=== PATIENT | male | born 1985 | race Caucasian/White ===

== ENCOUNTER 2021-11-19 16:01 | Inpatient (IN) | payer OTHER, MEDICAID ==
[~2021-11-19] VITALS: Ht 170.2 cm; Wt 63.6 kg
[~2021-11-19 16:01] MED LIST: GABA-1181 PO; OLAN10TA74 PO; SERT-158 PO
[2021-11-19 17:19] LABS: AMPHET/METH SCREEN,URINE POSITIVE (NEGATIVE); BARBITURATE SCREEN, URINE NEGATIVE (NEGATIVE); BENZODIAZEPINES SCREEN,URINE NEGATIVE (NEGATIVE); CANNABINOID SCREEN,URINE POSITIVE (NEGATIVE); COCAINE SCREEN,URINE NEGATIVE (NEGATIVE); METHADONE SCREEN, URINE NEGATIVE (NEGATIVE); OPIATE SCREEN,URINE NEGATIVE (NEGATIVE)
[2021-11-19 17:21] LABS: PHENCYCLIDINE SCREEN,URINE NEGATIVE (NEGATIVE)
[2021-11-19 17:30] LABS: BASOPHILS % (AUTO) 0.9 % (0.0-2.0); EOSINOPHILS % (AUTO) 1.1 % (1.0-6.0); HEMATOCRIT 46.6 % (41-53); HEMOGLOBIN 15.9 g/dL (13.5-17.5); LYMPHOCYTES # (AUTO) 1.9 K/uL (1.0-4.8); LYMPHOCYTES % (AUTO) 21.6 % (22.0-44.0); MEAN CORPUSCULAR HEMOGLOBIN 31.4 pg (26.0-34.0); MEAN CORPUSCULAR HGB CONC 34.1 G/dL (31.0-37.0); MEAN CORPUSCULAR VOLUME 92 fL (80-100); MONOCYTES # (AUTO) 0.9 K/uL (0.1-1.0); MONOCYTES % (AUTO) 10.1 % (2.0-9.0); NEUTROPHILS # (AUTO) 5.9 K/uL (1.8-7.7); NEUTROPHILS % (AUTO) 66.3 % (40.0-70.0); PLATELET COUNT (AUTO) 378 K/uL (150-450); RED BLOOD CELL COUNT(AUTO) 5.05 MIL/uL (4.50-5.90); RED CELL DISTRIBUTION WIDTH 13.4 % (11.5-14.5)
[2021-11-19 17:40] LABS: ANION GAP 10 mmol/L (8-16); CALCIUM, TOTAL 9.5 mg/dL (8.8-10.5); CARBON DIOXIDE 29 mmol/L (22-29); CHLORIDE 100 mmol/L (98-107); CREATININE 0.95 mg/dL (0.60-1.30); GLOMERULAR FILTR. RATE CALC > 60 mL/min (>60); GLUCOSE,RANDOM 55 mg/dL (70-110); SODIUM SERUM 139 mmol/L (136-145); UREA NITROGEN, BLOOD 17 mg/dL (7-18)
[2021-11-19 17:45] LABS: ALANINE AMINOTRANSFERASE 42 U/L (12-78); ALBUMIN 4.3 g/dL (3.4-5.0); ALKALINE PHOSPHATASE 48 U/L (46-116); ASPARTATE AMINOTRANSFERASE 27 U/L (15-37); BILIRUBIN,TOTAL 0.8 mg/dL (0.1-1.0)
[2021-11-19] MEDS ORDERED: HALOPERIDOL 5 MG TABLET PO PRN (18:15)
[2021-11-19] MEDS ORDERED: ZOLPIDEM TARTRATE 10 MG TABLET PO PRN (18:15)
[2021-11-19] MEDS ORDERED: LORazepam 2 MG TABLET PO PRN (18:15)
[2021-11-19 18:41] LABS: COVID AG,FIA SOURCE NASOPHARYNGEAL
[2021-11-20 01:03] VITALS: BP 102/60
[2021-11-20 08:48] VITALS: BP 103/54
[2021-11-20] MEDS ORDERED: ACETAMINOPHEN 325 MG TABLET PO PRN (12:45)
[2021-11-20] MEDS ORDERED: IBUPROFEN 400 MG TABLET PO PRN (12:45)
[2021-11-20] MEDS ORDERED: MAGNESIUM HYDROXIDE SUSPENSION 30 ML UDCUP PO PRN (12:45)
[2021-11-20] MEDS ORDERED: MAG HYDROX/AL HYDROX/SIMETH ES 30 ML SUSPENSION UDCUP PO PRN (12:45)
[2021-11-20] MEDS ORDERED: NICOTINE 14 MG/24 HOUR PATCH TD PRN (12:45)
[2021-11-20] MEDS ORDERED: DOCUSATE SODIUM 100 MG CAPSULE PO PRN (12:45)
[2021-11-20] MEDS ORDERED: PETROLATUM,WHITE 28 GM JELLY TP PRN (12:45)
[2021-11-20] MEDS ORDERED: CloNIDine HCL 0.1 MG TABLET PO PRN (12:45)
[2021-11-20] MEDS ORDERED: ONDANSETRON HCL 4 MG TABLET PO PRN (12:45)
[2021-11-20] MEDS ORDERED: GuaiFENesin/D-METHORPHAN [SUGAR-FREE] 200-20MG/10 ML SYRUP UDCUP PO PRN (12:45)
[2021-11-20] MEDS ORDERED: LOPERAMIDE HCL 2 MG CAPSULE PO PRN (12:45)
[2021-11-20] MEDS ORDERED: ALBUTEROL SULFATE HFA 90 MCG/PUFF 8 GM INHALER IH PRN (12:45)
[2021-11-20] MEDS: GABAPENTIN 300 MG CAPSULE PO SCH ×2 (13:26→17:06)
[2021-11-20] MEDS: OLANZapine 10 MG TABLET PO SCH ×2 (13:26→20:55)
[2021-11-20] MEDS: SERTRALINE HCL 50 MG TABLET PO SCH (13:27)
[2021-11-20] MEDS ORDERED: GABAPENTIN 300 MG CAPSULE PO SCH (17:00)
[2021-11-21 01:37] VITALS: BP 126/86
[2021-11-21 08:01] LABS: CHOL/HDL RATIO 3.6 (4.2-7.3); FREE T4 (FREE THYROXINE) 1.33 ng/dL (0.76-1.46); THYROID STIMULATING HORMONE 0.33 uIU/mL (0.36-3.74)
[2021-11-21 08:02] LABS: HEMOGLOBIN A1C 5.6 % (3.8-5.6)
[2021-11-21] MEDS: SERTRALINE HCL 50 MG TABLET PO SCH (09:30)
[2021-11-21] MEDS: GABAPENTIN 300 MG CAPSULE PO SCH ×3 (09:30→16:42)
[2021-11-21] MEDS: OLANZapine 10 MG TABLET PO SCH ×2 (09:30→20:27)
[2021-11-21 09:40] VITALS: BP 133/68
[2021-11-21 18:00] VITALS: BP 103/61
[2021-11-22 00:55] VITALS: BP 110/62
[2021-11-22 08:34] VITALS: BP 112/72
[2021-11-22] MEDS: OLANZapine 10 MG TABLET PO SCH ×2 (09:30→20:14)
[2021-11-22] MEDS: SERTRALINE HCL 50 MG TABLET PO SCH (09:30)
[2021-11-22] MEDS: GABAPENTIN 300 MG CAPSULE PO SCH ×3 (09:30→17:18)
[2021-11-23 01:28] VITALS: BP 114/70
[2021-11-23 08:17] VITALS: BP 107/61
[2021-11-23] MEDS: OLANZapine 10 MG TABLET PO SCH (09:25)
[2021-11-23] MEDS: GABAPENTIN 300 MG CAPSULE PO SCH ×3 (09:25→16:32)
[2021-11-23] MEDS: SERTRALINE HCL 50 MG TABLET PO SCH (09:25)
[2021-11-23 16:29] VITALS: BP 110/62
== END 2021-11-23 19:00 | disposition home or self-care (01) | DRG 885 ==
LOC: EMS 16:01 → B2S 11-20 00:28
PROVIDERS: ADMIT Psychiatry & Neurology Child & Adolescent Psychiatry; ATTEND Psychiatry & Neurology Child & Adolescent Psychiatry
DX: F33.2 Major depressive disorder, recurrent severe without psychotic features (principal); R45.851 Suicidal ideations; Z20.822 Contact with and (suspected) exposure to COVID-19; E16.2 Hypoglycemia, unspecified; F12.10 Cannabis abuse, uncomplicated; F15.10 Other stimulant abuse, uncomplicated; F17.200 Nicotine dependence, unspecified, uncomplicated; K59.00 Constipation, unspecified; F19.10 Other psychoactive substance abuse, uncomplicated; Z88.5 Allergy status to narcotic agent; Z91.19 Patient's noncompliance with other medical treatment and regimen
CPT/HCPCS: 80053; 80061; 83036; 84439; 84443; 85025; 99285; G0480